=== PATIENT | female | born 1985 | race Caucasian/White ===

== ENCOUNTER → 2020-12-25 14:27 | Outpatient (CLI) | payer OTHER, SELFPAY ==
--- NOTE | ~2020-12-25 | US_ITS ---
EXAMINATION: US pelvic complete w TV DATE: 12/25/2020 14:58 INDICATION: Polycystic ovarian syndrome TECHNIQUE: Multiple transabdominal and endovaginal sonographic images of the pelvis were obtained. COMPARISON: None. FINDINGS: The uterus measures 7.8 x 5.1 x 5.8 cm. The endometrial complex measures 8 mm. The right ov jasmin measures 4.3 x 2.8 x 3.8 cm and contains small follicles measuring up to 2.3 cm. The left ovary m easures 4.0 x 2.3 x 2.9 cm and contains tiny follicles. There is normal vascular flow in the ovaries. There is no free fluid in the pelvis. IMPRESSION: 1. Unremarkable pelvic ultrasound. Reviewed, dictated and finalized at location B.
== END ==
PROVIDERS: PCP Emergency Medicine; Visit Provider Emergency Medicine
DX: E28.2 Polycystic ovarian syndrome (principal)
CPT/HCPCS: 76830; 76856

== ENCOUNTER 2021-01-12 10:50 | Outpatient (CLI) | payer OTHER, SELFPAY ==
--- NOTE | ~2021-01-12 | MR_ITS ---
EXAMINATION: MR scapula LT wo con DATE: 01/12/2021 11:46 INDICATION: Left scapular pain TECHNIQUE: Magnetic resonance imaging (MRI) of the left scapula was performed without intravenous con trast. Sequences included axial T1-weighted FSE, axial T2-weighted FS FSE, axial PD-weighted FS FSE coronal T1-weighted FSE, coronal T2-weighted FS FSE, sagittal T1-weighted FSE and sagittal T2-weight ed FS FSE. COMPARISON: None. FINDINGS: Bone alignment is normal. Normal marrow signal throughout with no fracture or pathologic marrow repla cing process. Left shoulder appears unremarkable with normal acromioclavicular and glenohumeral joint spaces, normal glenoid labrum and normal rotator cuff tendons although sensitivity is slightly lower on the larger field of view images than on a standard shoulder MRI. Musculature of the left shoulde r girdle and visualized chest wall appear normal. No evident scapulothoracic bursitis. No abnormal ma sses or fluid collections. No pathologically enlarged lymphadenopathy at the visualized portions of t he left neck and thorax. IMPRESSION: 1. Normal MRI of the left scapula. Reviewed, dictated and finalized at location A.
== END 2021-01-12 10:51 ==
PROVIDERS: PCP Emergency Medicine; Visit Provider Emergency Medicine
DX: M25.512 Pain in left shoulder (principal)
CPT/HCPCS: 73218